=== PATIENT | female | born 1990 | race Caucasian/White ===

== ENCOUNTER 2017-10-13 14:05 | Emergency (ER) | payer OTHER ==
[~2017-10-13] VITALS: Ht 177.8 cm; Wt 133.4 kg
[~2017-10-13 14:05] MED LIST: ACYCLOVIR 800800 M1 PO; CARAFATE 1 GM TA1 GM PO; EXCEDRIN CAPLE1 EACH PO; HYDROCODON-ACE1 EAC7 PO; HYDROCODONE-AP1 EAC6 PO; HYDROCODONE-APA1 TA1 PO; MICROGESTIN FE1 EACH; PHARBETOL500 M1 PO; PREDNISONE 20 M20 MG PO; VICODIN 5-5001 EACH PO; ZOFRAN ODT4 MG PO; ZOFRAN4 MG PO
[2017-10-13] MEDS ORDERED: ACETAMINOPHEN-1 EAC1 PO (15:18)
[2017-10-13 15:41] VITALS: BP 143/86
== END 2017-10-13 15:42 | disposition home or self-care (01) ==
LOC: M.ERS 14:05
DX: S93.691A Other sprain of right foot, initial encounter (principal); G51.0 Bell's palsy; E28.2 Polycystic ovarian syndrome; Z88.1 Allergy status to other antibiotic agents; W51.XXXA Accidental striking against or bumped into by another person, initial encounter; Y93.89 Activity, other specified; Y92.89 Other specified places as the place of occurrence of the external cause; Y99.8 Other external cause status

== ENCOUNTER 2018-10-21 22:27 | Emergency (ER) | payer OTHER ==
[~2018-10-21] VITALS: Ht 175.3 cm; Wt 127.0 kg
[~2018-10-21 22:27] MED LIST changes: +ACETAMINOPHEN-1 EAC1 PO
[2018-10-21] MEDS ORDERED: birth control (23:05)
[2018-10-21] MEDS ORDERED: IBUPROFEN 800800 M1 PO (23:18)
[2018-10-21 23:31] VITALS: BP 127/80
== END 2018-10-21 23:32 | disposition home or self-care (01) ==
LOC: M.ERS 22:27
DX: S93.492A Sprain of other ligament of left ankle, initial encounter (principal); W01.0XXA Fall on same level from slipping, tripping and stumbling without subsequent striking against object, initial encounter; Y93.89 Activity, other specified; Y92.89 Other specified places as the place of occurrence of the external cause; Y99.8 Other external cause status